=== PATIENT | female | born 1935 | race Caucasian/White ===

== ENCOUNTER → 2016-09-22 | Outpatient (CLI) | payer MEDICARE, BC ==
[~2016-09-22] MED LIST: ASPIRIN 81M81 MG/TA2 PO; ASPIRIN PO; BUTALBITAL PO; CAFFEINE PO; CENTRUM SILVER1 TAB PO; CEPHALEXIN500 M1 PO; CITRACAL PLUS1 TAB PO; CITRUCEL WITH500 MG PO; FOSAMAX 70MG TA70 MG PO; GLUCOSAMINE 1000 PO; HALCION0.25 MG PO; MOTRIN 200200 MG/TAB PO; MYRBETR25MG PO; NORCO 325 MG-51 TAB PO; NORCO 325 MG-7.1 TAB PO; PERCOCET 325 MG1 TA2 PO; SENOKOT S 50 MG1 TAB PO; STOOL SOFTENER100 M2 PO; ULTRAM 50MG TAB50 MG PO; VITAMIN D1000 IU PO; ZOFRAN ODT4 MG PO
== END ==
LOC: COL.RAD 09:28
DX: S22.41XD Multiple fractures of ribs, right side, subsequent encounter for fracture with routine healing (principal); J98.11 Atelectasis; R91.8 Other nonspecific abnormal finding of lung field